=== PATIENT | female | born 1970 | race Caucasian/White ===

== ENCOUNTER 2017-12-18 18:27 | Outpatient (CLI) | payer BC | END 2017-12-18 18:28 | disposition EMS.NT | LOC: EMS 18:27 | PROVIDERS: ATTEND Surgery | DX: R07.89 Other chest pain (principal) ==

== ENCOUNTER 2017-12-18 19:16 | Emergency (ER) | payer BC ==
--- NOTE | 2017-12-18 19:49 | ED Physician Documentation ---
PD HPI CHEST PAIN - Stated complaint Stated Complaint: CP - Chief complaint Chief Complaint: Cardiac - History obtained from History obtained from: Patient, Family, Friend - History of Present Illness Timing - onset: Other (47-year-old woman has had a long history of chest pains, usually on the left side. She is been worked up in the past with stress test a few years ago which was an echo stress which was negative per her and she had her gallbladder out which really did not help. She has had increased left-sided upper chest wall and internal pain over the last 5 days that radiates sometimes to the ear and arm. She feels fatigued with it but there is no shortness of breath. She had some vague left calf pain a few days ago which is now gone. She did recently travel from [place] by air.) Review of Systems Constitutional: reports: Fatigue. denies: Fever, Chills Cardiac: reports: Chest pain / pressure. 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 - Present Medications Home Medications: Ambulatory Orders Medication Instructions Recorded Confirmed Alprazolam [Xanax] 0.5 mg PO Q6H PRN #15 tablet 12/18/17 - Allergies Allergies/Adverse Reactions: Allergies Allergy/AdvReac Type Severity Reaction Status Date / Time latex Allergy Rash Verified 12/18/17 19:36 - Social History Does the pt smoke?: No Smoking Status: Never smoker Does the pt drink ETOH?: Yes ETOH Use: Wine Does the pt have substance abuse?: No Substance Use and Type: Marijuana - Immunizations Immunizations are current?: No PD ED PE NORMAL - Vitals Vital signs reviewed: Yes - General General: Alert and oriented X 3, No acute distress - HEENT HEENT: PERRL, EOMI - Neck Neck: Supple, no meningeal sign, No bony TTP - Cardiac Cardiac: RRR, No murmur - Respiratory Respiratory: No respiratory distress, Clear bilaterally - Abdomen Abdomen: Non tender - Extremities Extremities: No edema, No calf tenderness / cord - Neuro Neuro: Alert and oriented X 3, Normal speech Results - Vitals Vitals: Vital Signs - 24 hr 12/18/17 12/18/17 12/18/17 19:30 22:23 22:46 Temperature 37.1 C Heart Rate 75 77 Respiratory 17 17 16 Rate Blood Pressure 179/100 H 127/95 H O2 Saturation 100 98 Oxygen O2 Source Room air - EKG (time done) 1925 Rate: Rate (enter#) (73) Rhythm: NSR Cascade: Normal Intervals: Normal UT QRS: Normal Ischemia: Normal ST segments Computer interpretation: Agree with computer - Labs Labs: Laboratory Tests 12/18/17 12/18/17 12/18/17 20:00 20:00 20:00 WBC 7.8 RBC 4.09 L Hgb 13.4 Hct 39.0 MCV 95.4 MCH 32.8 H MCHC 34.4 RDW 13.4 Plt Count 239 MPV 7.8 L Neut # (Auto) 4.4 Lymph # (Auto) 2.8 Amelia # (Auto) 0.5 Eos # (Auto) 0.1 Baso # (Auto) 0.1 Absolute Nucleated RBC 0.00 Nucleated RBC % 0.0 Sodium 139 Potassium 3.4 L Chloride 104 Carbon Dioxide 25 Anion Gap 10.0 BUN 11 Creatinine 0.6 Estimated GFR (MDRD) 108 Glucose 90 Calcium 8.9 Total Bilirubin 0.5 AST 17 ALT 15 Alkaline Phosphatase 53 Troponin I < 0.04 Total Protein 7.3 Albumin 4.3 Globulin 3.0 Albumin/Globulin Ratio 1.4 Lipase 25 PD MEDICAL DECISION MAKING - ED course ED course: 47yo woman with acute on chronic chest pains that are atypical and neg w/u in the past incl stress. CT imaging done given recent plane travel and HEART score = 1 Departure - Departure Disposition: 01 Home, Self Care Clinical Impression: Chest pain Condition: Good Record reviewed to determine appropriate education?: Yes Instructions: ED Chest Pain NonCardiac Prescriptions: Alprazolam [Xanax] 0.5 mg PO Q6H PRN #15 tablet PRN Reason: Anxiety Comments: Call your doctor to arrange a follow-up appointment, make the next available appointment. In the interim, return anytime if worse or if new symptoms develop. Discharge Date/Time: 12/18/17 22:47
[2017-12-18] MEDS ORDERED: IOPAMIDOL-300 100 ML VIAL ONE (20:11)
[2017-12-18 20:19] LABS: BASOPHILS # (AUTO) 0.1 10^3/uL (0.0-0.1); BASOPHILS % (AUTO) 0.9 %; EOSINOPHILS # (AUTO) 0.1 10^3/uL (0.0-0.7); EOSINOPHILS % (AUTO) 1.1 %; HGB - HEMOGLOBIN 13.4 g/dL (12.0-16.0); LYMPHOCYTES # (AUTO) 2.8 10^3/uL (1.5-3.5); LYMPHOCYTES % (AUTO) 35.7 %; MEAN CORPUSCULAR HEMOGLOBIN 32.8 pg (27.0-31.0); MEAN CORPUSCULAR HGB CONC 34.4 g/dL (32.0-36.0); MEAN CORPUSCULAR VOLUME 95.4 fL (81.0-99.0); MEAN PLATELET VOLUME 7.8 fL (7.9-10.8); MONOCYTES # (AUTO) 0.5 10^3/uL (0.0-1.0); MONOCYTES % (AUTO) 6.1 %; NEUTROPHILS # (AUTO) 4.4 10^3/uL (1.5-6.6); NEUTROPHILS % (AUTO) 56.2 %; PLT - PLATELET COUNT 239 10^3/uL (130-450); RED BLOOD COUNT 4.09 10^6/uL (4.20-5.40); RED CELL DISTRIBUTION WIDTH 13.4 % (12.0-15.0); WHITE BLOOD COUNT 7.8 x10^3/uL (4.8-10.8)
[2017-12-18 20:31] LABS: ALBUMIN 4.3 g/dL (3.2-5.5); ALBUMIN/GLOBULIN RATIO 1.4 (1.0-2.2); BILIRUBIN,TOTAL 0.5 mg/dL (0.2-1.0); CALCIUM 8.9 mg/dL (8.5-10.3); CREATININE 0.6 mg/dL (0.4-1.0); TOTAL PROTEIN 7.3 g/dL (6.7-8.2)
[2017-12-18] MEDS ORDERED: IOPAMIDOL-300 100 ML VIAL IVP ONE (21:01)
--- NOTE | 2017-12-18 22:21 | CT Report ---
Reason: chest pain Procedure Date: 12/18/2017 Accession Number: [id number] / [id number] Procedure: CT - Chest Angio (PE) CPT Code: FULL RESULT: EXAM: CT ANGIOGRAM CHEST EXAM DATE: 12/18/2017 08:59 PM. CLINICAL HISTORY: Chest pain since last night. COMPARISON: None. TECHNIQUE: Routine helical imaging was performed through the chest in the pulmonary arterial phase. IV Contrast: 80 cc of [id number]. Reconstructions: Coronal 3-D MIP reconstructions.Sagittal and coronal. In accordance with CT protocol optimization, one or more of the following dose reduction techniques were utilized for this exam: automated exposure control, adjustment of mA and/or KV based on patient size, or use of iterative reconstructive technique. FINDINGS: Pulmonary Arteries: Diagnostic quality: Adequate through the segmental arteries. No evidence for acute or chronic pulmonary emboli. RV/LV is within normal limits. There is no interventricular septal bowing. There is no reflux of contrast material in the IVC. Lungs/Pleura: Calcified granuloma, posterior right lower lobe. No consolidation, additional nodules, or edema. No effusions or pneumothorax. Mediastinum: Calcified right hilar nodes noted. No cardiac enlargement or adenopathy. Thoracic Aorta: Unremarkable. Upper Abdomen: Cholecystectomy clips noted. Ill-defined 2.4 cm liver low-density noted, upper right lobe. Other: None. IMPRESSION: 1. No pulmonary emboli. 2. No aortic aneurysm or dissection. 3. Old granulomatous disease on the right. 4. Ill-defined 2.4 cm liver low-density. Consider ultrasound evaluation. [facility]
[2017-12-18 22:24] VITALS: BP 127/95
== END 2017-12-18 22:47 | disposition home or self-care (01) ==
LOC: ED 19:16
DX: R07.89 Other chest pain (principal); G89.29 Other chronic pain; Z85.71 Personal history of Hodgkin lymphoma
CPT/HCPCS: 36415; 71275; 80053; 83690; 84484; 85025; 93005; 99283; Q9967